=== PATIENT | female | born 1970 | race African-American/Black ===

== ENCOUNTER 2016-12-30 03:17 | Emergency (ER) | payer OTHER ==
--- NOTE | ~2016-12-30 | CT4 ---
[facility] A Service of [facility] RADIOLOGY TEXT RESULTS PATIENT: CHERIE LANDRY LOCATION: SED : 68 UNIT #: [id number] AGE: [address]: Rey Reyna MD SEX: F ORDER DR: [id number] [place] [id number] E MR#: [id number] Acc #: [id number] NAME: CHERIE LANDRY : 1970 SEX: F STUDY DATE/TIME: 12/30/2016 03:56 UNIT: SED ROOM: STUDY DESCRIPTION: CT Abd and Pelv Wo Cont Attending Physician: Rey Reyna M.D. Ordering Physician: Rey Reyna M.D. Primary Care Physician: No Primary Care Physician MEDICAL IMAGING REPORT This report is preliminary unless electronic signature is present. EXAM CT abdomen and pelvis, 12/30 at 03:56. INDICATIONS Left flank pain for 3 days. Pain currently rates 10/10. TECHNIQUE Axial images were obtained through the abdomen and pelvis without contrast. Multiplanar reformats were obtained. This CT exam was performed with one or more of the following radiation dose reduction techniques: automatic exposure control, adjustment of mA and/or kV according to patient size, and iterative reconstruction. COMPARISON No comparison. FINDINGS ABDOMEN: The exam is motion degraded. Lung bases are clear. Gallbladder has been removed. No biliary obstruction. There is hepatic steatosis. No renal or ureteral stones are identified and there is no hydronephrosis. The unenhanced solid organs are otherwise normal. The unopacified GI tract is normal. No free fluid is seen. PELVIS: No lower ureteral stones are seen. The bladder is normal. The solid pelvic organs are normal. There is no free fluid. The unopacified GI tract, including the appendix is normal. 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 IMPRESSION 1. Motion degraded exam, but no acute abnormalities are identified. 2. No renal or ureteral stones. No hydronephrosis. 3. Normal unopacified GI tract including the appendix. 4. Cholecystectomy. [facility] A Service of [facility] RADIOLOGY TEXT RESULTS PATIENT: CHERIE LANDRY LOCATION: SED : [birth year] UNIT #: [id number] AGE: [address]: Rey Reyna MD SEX: F ORDER DR: 5. Fatty liver. Dictated by... King Devries Jr., M.D. THIS IS AN ELECTRONICALLY VERIFIED REPORT King Devries Jr., M.D. at 12/30/2016 12:40 PM GARY/dania TD: 12/30/2016 09:52 JOB #: [id number] MEDICAL IMAGING REPORT
[~2016-12-30 03:17] MED LIST: ALBUTEROL17 GM INH; ALEVE220 M1 PO; AMOXICILLIN PO; B/P MED; BACTRIM DS TABL1 TA1 PO; CHOLESTEROL MED; CLARITIN10 M3 PO; FISH OIL; FLEXERIL10 MG PO; GABAPENTIN300 MG PO; HYDROCODON-ACE1 EAC5 PO; IBUPROFEN PO; KCL PO; MED FOR HERPES PO; METFORMIN PO; MOBIC PO; MULTIVITAMIN1 UDCAP PO; PEN-VEE K PO; PRILOSEC20 M1 PO; PYRIDIUM PO; SKELAXIN PO; SPIRIVA18 MCG PO; SYMBICORT80 INH; VITAMIN D50000 UNIT PO; WATER PILL
[2016-12-30 03:33] LABS: URINE SOURCE CLEAN CATCH
[2016-12-30 03:35] LABS: URINE APPEARANCE CLEAR; URINE BILIRUBIN NEG (NEG); URINE BLOOD NEG (NEG); URINE COLOR YELLOW; URINE GLUCOSE 300 MG/DL (NORM); URINE KETONE NEG (NEG); URINE LEUKOCYTE ESTERASE NEG (NEG); URINE NITRATE NEG (NEG); URINE PROTEIN NEG (NEG); URINE SPECIFIC GRAVITY 1.025 (1.003-1.035); URINE UROBILINOGEN 0.2 MG/DL (NORM)
[2016-12-30 03:36] LABS: MICRO INDICATED? NO
[2016-12-30 03:44] LABS: BASOPHIL# 0.1 X10e3 (0-0.3); BASOPHIL% 1.1 % (0-2.5); EOSINOPHIL# 0.4 X10e3 (0-0.7); EOSINOPHIL% 5.4 % (0.0-7.0); HEMATOCRIT 44.3 % (35.0-45.0); HEMOGLOBIN 14.3 gm/dL (12.0-16.0); LYMPHOCYTE# 2.9 X10e3 (1.0-3.5); LYMPHOCYTE% 40.2 % (17.0-45.0); MEAN CELL VOLUME 88.5 FL (83-96); MEAN CORPUSCULAR HEMOGLOBIN 28.5 PG (28-34); MEAN CORPUSCULAR HGB CONC 32.2 g/dL (30-36); MEAN PLATELET VOLUME 8.6 FL (6.5-11.5); MONOCYTE# 0.5 X10e3 (0-1.0); MONOCYTE% 6.9 % (3.0-12.0); NEUTROPHIL# 3.4 X10e3 (1.5-7.1); NEUTROPHIL% 46.4 % (40-75); PLATELET COUNT 273 X10e3 (140-420); RED BLOOD COUNT 5.01 X10e (3.90-5.30); RED CELL DISTRIBUTION WIDTH 15.6 % (11.0-15.5); WHITE BLOOD COUNT 7.3 X10e3 (4.0-10.5)
[2016-12-30 03:45] LABS: DIFF IND NO
[2016-12-30 04:06] LABS: BLOOD UREA NITROGEN 14 mg/dL (9-23); CALCIUM SERUM 9.6 mg/dL (8.4-10.2); CARBON DIOXIDE 24 mmol/L (22-31); CHLORIDE 102 mmol/L (100-111); CREATININE SERUM 0.8 mg/dL (0.6-1.4); GLOM FILT RATE Estimated ABOVE60 mL/min (>60); GLUCOSE FASTING 140 mg/dL (70-110); POTASSIUM 3.4 mmol/L (3.5-5.1); SODIUM 133 mmol/L (135-145)
== END 2016-12-30 08:20 | disposition home or self-care (01) ==
LOC: SED 03:17
PROVIDERS: Emergency Medicine
DX: R10.9 Unspecified abdominal pain (principal); E11.9 Type 2 diabetes mellitus without complications; I10 Essential (primary) hypertension; J44.9 Chronic obstructive pulmonary disease, unspecified; Z79.899 Other long term (current) drug therapy
CPT/HCPCS: 36415; 74176; 80048; 81003; 85025; 99284